=== PATIENT | male | born 1960 | race Two or more races ===

== ENCOUNTER 2023-12-24 15:17 | Emergency (ER) | payer MEDICARE, MEDICAID ==
[~2023-12-24] VITALS: Ht 177.8 cm; Wt 100.0 kg
[2023-12-24 15:19] VITALS: O2SAT 98
[2023-12-24] MEDS: LORAZEPAM 2MG/ML INJ IV ONE (15:50)
[2023-12-24] MEDS: ONDANSETRON HCL 4MG/2ML INJ IV STA (15:52)
[2023-12-24 16:15] LABS: BASOPHILS % 0.5 % (0.0-2.0); HEMATOCRIT. 46.8 % (42.0-52.0); HEMOGLOBIN. 15.6 g/dL (14.0-18.0); LYMPHOCYTES % 35.8 % (20.0-50.0); MEAN CORPUSCULAR HGB CONC 33.5 g/dL (31.0-37.0); MEAN CORPUSCULAR VOLUME 98.7 fL (80.0-94.0); MEAN PLATELET VOLUME 7.4 fl (7.4-10.4); NEUTROPHILS % 51.7 % (40.0-76.0); PLATELET 257 x1000/uL (130-400); RED BLOOD CELL COUNT 4.74 mill/uL (4.7-6.1); WHITE BLOOD COUNT 17.5 x1000/uL (4.5-11.0)
[2023-12-24 16:20] LABS: INR 1.2; PROTHROMBIN TIME 12.8 sec (9.6-11.0)
[2023-12-24 16:21] LABS: CHLORIDE 93 mEq/L (98-107); SODIUM 137 mEq/L (136-145)
[2023-12-24] MEDS: LEVETIRACETAM 1000MG PREMIX 100 ML IV ONE (16:21)
[2023-12-24] MEDS: SODIUM CHLORIDE 0.9% 1,000 ML IV ONE (16:21)
[2023-12-24 16:22] LABS: CALCIUM 8.7 mg/dL (8.7-10.4); CARBON DIOXIDE 21 mEq/L (21-32)
[2023-12-24 16:27] LABS: CREATININE 1.7 mg/dL (0.6-1.3); GLUCOSE 203 mg/dL (70-105); UREA NITROGEN BLOOD 8 mg/dL (9-23)
[2023-12-24 16:28] LABS: TROPONIN I HIGH SENSITIVITY 13 ng/L (3.0-53)
[2023-12-24 16:41] LABS: ETHANOL BLOOD < 10 mg/dL (<10)
[2023-12-24] MEDS ORDERED: NICARDIPINE 50 MG in SODIUM CHLORIDE 0.9% 230 ML IV PRN (18:30)
[2023-12-24 18:45] VITALS: BP 128/63; PULSE 102; RESP 18; TEMP 98.6
[2023-12-24] MEDS ORDERED: IOHEXOL-350 100 ML BOTTLE ONE (23:12)
== END 2023-12-24 19:10 | disposition short-term general hospital (02) ==
LOC: ER 15:17 → CANBEDREQ 17:40 → ER 19:10
DX: R41.82 Altered mental status, unspecified (principal); S02.91XA Unspecified fracture of skull, initial encounter for closed fracture; I60.9 Nontraumatic subarachnoid hemorrhage, unspecified; I10 Essential (primary) hypertension; R56.9 Unspecified convulsions; W18.30XA Fall on same level, unspecified, initial encounter; Y93.89 Activity, other specified; Y92.89 Other specified places as the place of occurrence of the external cause; Y99.8 Other external cause status
CPT/HCPCS: 80048; 80320; 85025; 85610; 84484; 36415; 71045; 70496; 70450; 93005; 96365; 96366; 96375; 99291; Q9967; J1953; J2060; J7030; G0480